=== PATIENT | female | born 1990 | race Caucasian/White ===

== ENCOUNTER 2021-07-27 15:04 | Emergency (ER) | payer OTHER ==
[2021-07-27 17:40] LABS: INFLUENZA A NAA NEGATIVE (NEGATIVE)
[2021-07-27 17:50] LABS: CORONAVIRUS 2019 SARS-COV-2 POSITIVE (NEGATIVE)
== END 2021-07-27 18:45 | disposition home or self-care (01) ==
LOC: FER 15:04
PROVIDERS: Physician Assistant
DX: U07.1 COVID-19 (principal)
CPT/HCPCS: 99283; U0002